=== PATIENT | male | born 1955 | race Caucasian/White ===

== ENCOUNTER 2021-01-05 10:13 | Outpatient (CLI) | payer MEDICARE, SELFPAY ==
[2021-01-05 10:55] LABS: Anion Gap 3 mmol/L (8-16); Blood Urea Nitrogen 14 mg/dL (9-20); Calcium 10.1 mg/dL (8.4-10.2); Carbon Dioxide 34 mmol/L (22-30); Chloride 101 mmol/L (98-107); Estimated Glomerular Filt Rate > 60; Glucose 90 mg/dL (75-110); Potassium 4.4 mmol/L (3.4-5.0); Sodium 138 mmol/L (137-145)
== END 2021-01-05 10:14 | disposition home or self-care (01) ==
LOC: ANHLAB 10:21
PROVIDERS: PCP Family Medicine; Visit Provider Family Medicine
DX: M62.838 Other muscle spasm (principal)
CPT/HCPCS: 36415; 80048

== ENCOUNTER → 2021-01-05 10:42 | Outpatient (CLI) | payer MEDICARE, SELFPAY ==
--- NOTE | ~2021-01-05 | XR_ITS ---
XR thoracic spine 3V 01/05/2021 11:35 Indication: Thoracic spine pain Procedure: 3 views thoracic spine Comparison: No prior studies for comparison. Findings: There is mild levocurvature of the upper thoracic spine. No acute fracture or traumatic mal alignment is identified. There is mild multilevel spondylosis. No paraspinal soft tissue abnormality. Pedicles are intact. There is diffuse idiopathic skeletal hyperostosis (DISH) of the thoracic spine. Impression: 1: No acute abnormality of the thoracic spine. 2: Mild thoracic spondylosis. Reviewed, dictated and finalized at location A. Impression: 1: No acute abnormality of the thoracic spine. 2: Mild thoracic spondylosis.
== END ==
PROVIDERS: PCP Family Medicine; Visit Provider Family Medicine
DX: M47.894 Other spondylosis, thoracic region (principal)
CPT/HCPCS: 72072

== ENCOUNTER 2022-08-16 11:02 | Outpatient (CLI) | payer MEDICARE, SELFPAY ==
--- NOTE | ~2022-08-16 | US_ITS ---
EXAMINATION: US venous doppler [facility] DATE: 08/16/2022 11:40 INDICATION: Left lower limb pain. TECHNIQUE: Grayscale ultrasound images without and with compression and Doppler ultrasound images of the left lower extremity veins were obtained. COMPARISON: None. FINDINGS: The visualized portions of left common femoral vein, profunda (deep) femoral vein, femoral vein, popl iteal vein, peroneal veins, posterior tibial veins, and greater saphenous vein outflow are patent. IMPRESSION: 1. No deep venous thrombosis. Reviewed, dictated and finalized at location A. [employer]
== END 2022-08-16 11:03 | disposition home or self-care (01) ==
PROVIDERS: PCP Family Medicine; Visit Provider Family Medicine
DX: M79.662 Pain in left lower leg (principal)
CPT/HCPCS: 93971

== ENCOUNTER 2022-12-20 07:30 | Outpatient (CLI) | payer MEDICARE, SELFPAY ==
--- NOTE | ~2022-12-20 | XR_ITS ---
EXAMINATION: XR hip RT 2V w AP pelvis INDICATION: Right hip pain TECHNIQUE: AP view of the pelvis and two views of the right hip are obtained. COMPARISON: None available FINDINGS: Bone alignment is normal. There is no fracture. There is mild osteoarthritis of the hips. C hanges of anterior and posterior fusion are noted in the lower lumbar spine. IMPRESSION: 1. Mild osteoarthritis of the hips. Reviewed, dictated and finalized at location B.
== END 2022-12-20 07:31 | disposition home or self-care (01) ==
PROVIDERS: PCP Family Medicine; Visit Provider Family Medicine
DX: M16.0 Bilateral primary osteoarthritis of hip (principal)
CPT/HCPCS: 73502

== ENCOUNTER 2024-12-10 07:29 | Outpatient (CLI) | payer MEDICARE, SELFPAY ==
--- NOTE | ~2024-12-10 | XR_ITS ---
XR hip RT 2V w AP pelvis Ordering provider: Jett Vogt MD History: . M70.61 - Trochanteric bursitis, right hip; chronic pain . Comparison: December 20, 2022 FINDINGS: BONES: No acute fracture or dislocation. HIP JOINT SPACES: Mild to moderate osteoarthritic changes seen bilaterally. SACROILIAC JOINT SPACES/LUMBAR SPINE: The sacroiliac joint spaces shows sacroiliitis. Postoperative c hanges in the lower lumbar area. Mild degenerative changes of the visualized lower lumbar spine. PUBIC SYMPHYSIS: Normal. SOFT TISSUES: Normal. IMPRESSION: No acute osseous abnormality pelvis and right hip. Bilateral hip mild to moderate osteoarthritic martin ges. Reviewed, dictated and finalized at location A. IMPRESSION: No acute osseous abnormality pelvis and right hip. Bilateral hip mild to modera te osteoarthritic changes.
== END 2024-12-10 07:30 | disposition home or self-care (01) ==
LOC: MICIMG 07:30
PROVIDERS: PCP Family Medicine; Visit Provider Orthopaedic Surgery
DX: M70.61 Trochanteric bursitis, right hip (principal)
CPT/HCPCS: 73502

== ENCOUNTER 2025-08-17 08:42 | Outpatient (CLI) | payer MEDICARE, SELFPAY ==
--- OUTSIDE RECORDS SUMMARY | 2010-08-29 18:00 | XMS_ITS | Continuity of Care Document ---
Author Organization [facility] Address [address] [place] [address] Phone Care Team Providers Care Lumber Carrier Name Role Phone Vladislav Zamudio MD Unavailable Unavailable Advance Directives Directive Yes / No Effective Date File Name No Information Encounters Encounter Description Practice Location Reason(s) For Visit Diagnoses Date Provider Providers Copied on Encounter [facility], [address], [place], [place], [address], [place] tel:[phone] [facility] Robb Loomis. [address], [place], [place], [address], [place]. tel:[phone] Family History Family Member Type Diagnosis Age At Onset No Information Payers Payer name Insurance type Covered green party ID Authoriza tion(s) No Information Social History Type Description Quantity Date Captured Comments Sex Male Smoking Status No Information Chief Complaint And Reason For Visit No Information Reason For Referral Reason For Referral No Information History Of Present Illness Encounter Date Complaint History Of Prese nt Illness No Information Functional Status Date Functional Assessmen t No Information Instructions Date Instruction Additional Infor mation No Information Assessments Type Assessment Date No Information Patient Care Teams Name Effective Dates (start - stop) Status Members No Information
--- OUTSIDE RECORDS SUMMARY | 2025-08-04 04:00 | XMS_ITS | Continuity of Care Document ---
Author Organization [employer] [facility] Address [address] [place] [address] Phone Care Team Providers Care Founder And President Name Role Phone Linda Sheridan DMD Unavailable Unavailable Medications Medication Instructions Dosage Effective Dates (start - stop) Status Comments chlorhexidine gluconate 0.12 % mouthwash place 15 milliliter by mucous membrane route 2 times every day in the mouth (after meals), swish in mouth for 30 seconds then spit out 15.00 milliliter - Active amoxicillin 500 mg capsule take 1 capsule by oral route every 8 hours 500 MG - Active acetaminophen 300 mg-codeine 30 mg tablet take 1-2 tablets every 4-6 hours as needed for pain - Active Medrol (Aakash) 4 mg tablets in a dose pack take by oral route as directed per package instructions 0.00 - Active Procedures Procedure Date Office Visit (No Chrg) Office Visit (No Chrg) Removal Of Implant, By Report Guided Tissue Regeneration-Resorbable Ba rrier, Per Site Bone replacement graft Limit Oral Evaluation- problem focused S ep Cone Beam Both Jaws; W/w/o Cranium Sep-0 Limit Oral Evaluation- problem focused J Advance Directives Directive Yes / No Effective Date File Name No Information Encounters Encounter Description Practice Location Reason(s) For Visit Diagnoses Date Provider Providers Copied on Encounter [facility] , [address], [place], [place], [address], tel:[phone] [facility] Encounter for dental exam and cleaning w abnormal findings 5 Arvin Mckeon. [address], [place], [place], [address]. tel:[phone] [facility] , [address], [place], [place], [address], [place] tel:[phone] [facility] Encounter for dental exam and cleaning w abnormal findings 5 Arvin Mckeon. [address], [place], [place], [address]. tel:[phone] Referring Provider: Linda Sheridan, [address], [place], [address] . tel:[phone] [facility] , [address], [place], [place], [address], [place] tel:[phone] [facility] [place]-osseo[place] gration biological failure of dental implantOth disrd of gingiva and edentulous alveolar ridgePartial loss of teeth due to oth cause, unspecified class 5 Mika Rocha. [address], [place], [place], [address]. tel:[phone] [facility] , [address], [place], [place], [address], [place] tel:[phone] [facility] Encounter for dental exam and cleaning w abnormal findings 5 Mika Rocha. [address], [place], [place], [address]. tel:[phone] [facility] , [address], [place], [place], [address], [place] tel:[phone] [facility] Encounter for dental exam and cleaning w abnormal findings 5 Debbie Titus. [address], [place], [place], [address]. tel:[phone] Referring Provider: Linda Sheridan, [address], [place], [address] . tel:[phone] [facility] , [address], [place], [place], [address], [place] tel:[phone] Care Guidelines 1-190 1 No Information Family History Family Member Type Diagnosis Age At Onset No Information Payers Payer name Insurance type Covered constitution party ID Alban chauhan(s) Khari [facility] COMMERCIAL CI [id number] Social History Type Description Quantity Date Captured [...]
--- NOTE | ~2025-08-17 | US_ITS ---
EXAMINATION: US aorta [facility] scrn, 08/17/2025 9:25 WET END SUPERVISOR HISTORY: Z87.891 - Personal history of nicotine dependence Comparison: None Technique: Grimm-scale and color Doppler images were obtained. Findings: Large amount of bowel gas obscures evaluation There is no aneurysm identified of the visualized aorta, the visualized proximal iliac arteries are unremarkable. IMPRESSION: No aneurysm identified Reviewed, dictated and finalized at location P. END SUPERVISOR IMPRESSION: No aneurysm identified
--- OUTSIDE RECORDS SUMMARY | 2025-08-17 09:11 | XMS_ITS | Patient Health Record ---
Author Organization [facility] , Address [address] [facility] [address] [place] [address] Care Team Providers Care Seed Service Advisor Name Role Phone Wilbert Huynh Primary Care Provider Bibi e Victoriano Vallecillo Unavailable [phone] REASON FOR REFERRAL No Information MEDICATIONS Medication SIG (Take, Route, Frequency, Duration) Notes Start Date End Date Status Lipitor Not-Taking Metoprolol Succinate Active Omeprazole Not-Takin g Indomethacin ER 75 MG 1 capsule with valente d Orally Once a day for 30 day(s) 10/18/2017 Not-Javon ing Acyclovir Active PLAN OF TREATMENT No Information Insurance Providers Payer Name Payer Address Payer Phone Subscriber Number Group Number Insured Name Patient Relationship to Insured Coverage Start Date Coverage End Date [employer] [address] [place] [address] [id number] Simon Marks Self - patient is the insured MEDICATIONS ADMINISTERED Medication Instructions Date of Administration Dosage Notes Celestone 1mg-[id number] 02/24/2020 1 cm3 MEDICAL (GENERAL) HISTORY Medical History History ICD Code Cancer Hypertension Sleep apnea Surgical History Surgery Date(Month/Year) Spine fusion 2007 MCL repair 2016
--- OUTSIDE RECORDS SUMMARY | 2025-08-17 09:11 | XMS_ITS | Clinical Summary ---
Author Organization [facility] HealthCare Care Team Providers Care Manager Of Compliance Name Role Phone Jacques Meraz MD Primary Care Provider Allergies No known active allergies Medications cholecalciferol (VITAMIN D-3) 1,000 unit Active metoprolol (LOPRESSOR) 50 mg tablet Take 1 tablet (50 mg total) by mouth 2 (two) times a day 180 tablet 3 9 Active TRIAMTERENE-HYDR OCHLOROTHIAZIDE 37.5-25 mg per capsule Take 1 capsule by mouth daily 3 9 Active omeprazole OTC (PriLOSEC OTC) 20 mg EC tablet OMEPRAZOLE 20 MG ORAL TABLET DELAYED RELEASE 3 Active Nystop powderIndication s:Intertrigo apply powder to groin area every day as needed 60 g 2 2 Active valACYclovir (VALTREX) 1 gram tablet Take 1,000 mg by mouth daily 2 Active atorvastatin (LIPITOR) 10 mg tablet Take 10 mg by mouth daily 2 Active omeprazole (PriLOSEC) 20 mg capsule Take by mouth daily 2 Active apixaban (ELIQUIS) 5 mg tabletIndication s:Atrial fibrillation, unspecified type (HCC) Take 1 tablet (5 mg total) by mouth 2 (two) times a day 62 tablet 2 Active Active Problems Problem Noted Date Diagnosed Date S/P ablation of atrial fibrillation 12/18/2021 Anticoagulation management encounter 12/18/2021 Assessment & Plan (02/16/2022 9:17 AM CDT): The patient has a KFW9JM3-ODCi score of 2 (annualized risk of stroke 2.2%). I have therefore recommended continued anticoagulation for thromboprophylaxis. Assessment & Plan (12/18/2021 11:57 AM CDT): The patient has a OQP3HW2-XOQd score of 1 (annualized risk of stroke 1.2%). I have recommended continued anticoagulation in anticipation of christian of sinus rhythm. The patient will follow-up with me in 1-2 months for an office visit and twelve- lead ECG. Lopez angioma 01/15/2018 Dermatofibroma 01/15/2018 Intertrigo 01/15/2018 Essential hypertension 10/19/2017 Assessment & Plan (11/17/2021 3:30 PM REGISTRATION SCHEDULING SPECIALIST): Blood pressure is normal today. If it becomes low with metoprolol 50 mg b.i.d., triamterene hydrochlorothiazide may need to be decreased or eliminated. Assessment & Plan (10/19/2017 10:39 AM REGISTRATION SCHEDULING SPECIALIST): Blood pressure is adequately controlled on current regimen. No change was made. Weight loss would benefit his blood pressure Morbid obesity 10/19/2017 Assessment & Plan (10/19/2017 10:40 AM REGISTRATION SCHEDULING SPECIALIST): Obesity is contributing to his hypertension and he would likely require less medication with weight loss. I think he is a safe candidate for bariatric surgery. He is medically clear and stable for surgery. 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 He underwent cardioversion 2 months ago, but his atrial arrhythmia has recurred. We discussed options for management, and the patient would like to undergo repeat ablation. We discussed the rationale for atrial fibrillation ablation, including the steps involved in ablation. I detailed the risks of the procedure, including vascular injury/hematoma, myocardial injury/perforation, stroke, myocardial infarction, pulmonary vein stenosis, thermal esophageal injury, phrenic nerve injury, and . I estimated a 70% chance of freedom from long-term atrial arrhythmia. Because of the patient's persistent atrial fibrillation, I recommended that they undergo transesophageal echocardiography (to exclude the presence of left atrial thrombus) immediately prior to EP study and ablation. My office will make the appropriate arrangements. Assessment & Plan (12/18/2021 11:56 AM CDT): Persistent atrial fibrillation, symptomatic. He is over 7 years post catheter ablation. I recommended repeat cardioversion. Risks and benefits were explained. If he experiences recurrence of atrial arrhythmia post cardioversion, catheter ablation can be considered. Assessment & Plan (11/17/2021 3:29 PM REGISTRATION SCHEDULING SPECIALIST): Recurrent atrial fibrillation of unknown chronicity nine years following ablation. He now has a chads Vasc score of two for which he should be systemically anticoagulated. We discussed NOAC therapy but I did not prescribe anything pending review labs which he had drawn today at to make sure that he is not anemic and that he has normal renal function. Recommended increasing metoprolol back to his prescribed dosage of 50 mg b.i.d.. Will obtain echo Doppler. Will refer back to Dr. López. Assessment & Plan (10/19/2017 10:39 AM REGISTRATION SCHEDULING SPECIALIST): No documented recurrence since his ablation. He is no longer on anticoagulation, and does not require it. Shortness of breath 09/05/2013 Hypercholesterolemia 09/05/2013 Thoracic and lumbosacral neuritis 12/18/2008 Encounters Date Type Department Care Team Description 05/22/2025 Orders Only [facility] Medicine Pathology Outreach [address] [place] [address] Erin Camargo MD from Last 3 Months Surgical History Surgery Date Site/Laterality Comments BACK SURGERY Back Surgery HIATAL HERNIA REPAIR Hiatal Hernia Repair SPINAL FUSION 09/17/2010 - 09/16/2011 Spinal Fusion ABLATION Ablation ARTHROSCOPIC REPAIR ACL Medical History Medical History Date Comments Hx Other Medical Sleep Apnea, CP AP Hx Other Medical 1998 Hiatal Hernia Family History Medical History Relation Name Comments Heart attack Brother 2 Myocardial Infa rction; Relation Name Status Comments Brother 1 Alive Brother 2 Social History Tobacco Use Types Packs/Day Years Used Date Smoking Tobacco: Former Smokeless Tobacco: Former Tobacco Cessation:Counseling Given: Not Answered Alcohol Use Standard Drinks/Week Comments Yes 0 (1 standard drink = 0.6 oz pur e alcohol) Sex and Gender Information Value Date Recorded Sex Assigned at Not on file Legal Sex Male 7:20 PM REGISTRATION SCHEDULING SPECIALIST Gender Identity Male 11/17/2021 6:49 AM REGISTRATION SCHEDULING SPECIALIST Sexual Orientation Not on file Last Filed Vital Signs Vital Sign Reading Time Taken Comments Blood Pressure 126/81 07/10/2022 9:33 AM CDT Pulse 55 07/10/2022 9:33 AM CDT Temperature 36.8 C (98.2 F) 02/27/2022 3:20 PM CDT Respiratory Rate 16 07/10/2022 9:33 AM CDT Oxygen Saturation 97% 04/10/2022 9:51 AM CDT Inhaled Oxygen Concentration - - Weight 126.7 kg (279 lb 6.4 oz) 022 9:33 AM CDT Height 185.4 cm (6' 1) 07/10/2022 9:33 AM CDT Body Mass Index 36.86 07/10/2022 9:33 AM CDT Plan of Treatment Health Maintenance Due Date Last Done Comments Colon Cancer Screening-Colonoscopy 1955 Depression Screening 1955 Hepatitis C Screening 1955 Prostate Cancer Screening-PSA 1955 DTaP/Tdap/Td Vaccine (1 - Tdap) 1966 Hepatitis B Screening 1973 Abdominal Aortic Aneurysm (AAA) Screen 2020 Well Visit 65+ 2020 Pneumococcal vaccine 65+ (2 of 2 - PCV) 06/15/2022 0 06/15/2021 Fall Risk Assessment 02/27/2023 02/27/2022 Influenza Vaccine (#1) 2025 Zoster Vaccine Completed 05/28/2019, 01/30/2019 Medical Devices Implanted Type Area Clinical Dietitian Device Identifier Shelf Expiration Date Model / Serial / Lot [employer] Vascade 6/7fr Bioabsorbable Vascular System Compression Collagen [id number] - [id number] - [id number] Implanted:Qty: 1 on 02/27/2022 by Dino López MD at [facility] Collagen [employer] 11/17/2023 [id number] [id number] / [id number] / [id number] Vascade Mvp 6-12fr Venous Closure [id number] - [id number] - [id number] Implanted:Qty: 1 on 02/27/2022 by Dino López MD at [facility] Collagen [employer] 12/21/2023 [id number]-[id number] 0U / [id number] / [id number] Vascade Mvp 6-12fr Venous Closure [id number] - [id number] - [id number] Implanted:Qty: 1 on 02/27/2022 by Dino López MD at [facility] Collagen [employer] 12/21/2023 800-612C-1 0U / [id number] / [id number] Vascade Mvp 6-12fr Venous Closure [id number] - [id number] - [id number] Implanted:Qty: 1 on 02/27/2022 by Dino López MD at [facility] [employer] 12/21/2023 800-612C-1 0U / [id number] / [id number] Procedures Procedure Name Priority Date/Time Associated Diagnosis Comments SURGICAL PATHOLOGY Routine 05/22/2025 10 :20 AM CDT from Last 3 Months Results * Surgical pathology (05/22/2025 10:20 AM CDT) Skin, shave biopsy 05/22/2025 10:20 AM CDT 05/25/2025 6:34 AM CDT Narrative 05/26/2025 12:57 PM CDT EPIC results best viewed via link to PDF [facility] [facility], [address], [place] [address] [email or web address] Note to Patients: This report may contain a detailed description of human tissue sent by a health care provider to the laboratory for pathologic evaluation. The content of this report is essential for diagnosis and may provide important critical findings. This information may be unfamiliar to patients to review without a medical professional present. It is advised that the patient review this report in the presence of a health care provider who can answer questions and explain the details. FINAL REPORT Patient Information: PATIENT NAME: SIMON ROBERSON SEX: M : 1955 (Age: 69) Specimen Information: COLLECTED: 05/22/2025 RECEIVED: 05/25/2025 REPORTED: 05/26/2025 Submitting Physician Information: Erin Camargo MD [facility] [place], [facility] [place] [address], DERMATOPATHOLOGY REPORT RESULTS DIAGNOSIS: SKIN, LEFT DORSAL HAND, SHAVE BIOPSY: SQUAMOUS CELL CARCINOMA IN SITU Note: The lesion does not extend to the margins of the sections examined. ag/lac By this signature, I attest that the above diagnosis is based upon my personal examination of the slides(and/or other material indicated in the diagnosis). Yumi Gonzalez M.D. Report Electronically Reviewed and Signed Out By Yumi Gonzalez M.D. 05/26/2025 12:57:08 CLINICAL INFORMATION ERYTHEMATOUS PATCH WITH HYPERKERATOTIC SCALE: ACTINIC KERATOSIS VS BASAL CELL CARCINOMA SPECIMEN DATA MICROSCOPIC DESCRIPTION: Atypical keratinocytes are present throughout the entire thickness of the epidermis. (D04.9) GROSS DESCRIPTION: Received in a formalin-containing bottle is a superficial fragment of pale freire, dome-shaped, and hair-bearing skin measuring 0.8 by 0.6 by 0.1 cm. The surgical margin is inked blue. The specimen is sectioned into 3 pieces and submitted entirely in a single cassette. Due to shrinkage, measurements may be different than those at time of procedure. catherine/anc ICD-9 A; ZSD.1474 Clerical Data A; 98782 The characteristics of special, immunohistochemical, and immunofluorescence stains and in-situ hybridization tests performed by the [facility] were deemed acceptable in ongoing quality management coordinator measures and in compliance with regulations drawn from the Clinical Laboratory Improvement Act yr1583 (CLIA '88). Control reactions for all stains performed were deemed adequate and appropriate by a pathologist prior to evaluation of patient tissue. Some diagnoses were rendered with the assistance of laboratory-developed tests utilizing analyte-specific reagents; the performance characteristic of these tests were determined by [facility] and are not cleared or approved by the [place] Food an Drug administration. Laboratory developed test may only be performed in a facility that is certified by the [facility] as a high-complexity laboratory under CLIA '88. These tests are used for clinical purposes and are not investigational. Erin Camargo MD LAB PATHOLOGY ORDERABLES F inal Result from Last 3 Months Insurance [facility] Address: [facility] [address] [place] [address] [facility] ADVANTAGE [facility] Address: [address] [address] [place] [address] [facility] MDCR HMO REF [facility] Address: [address] [address] [place] [address] Care Teams Manager Of Compliance Relationship Specialty Start Date End Date Jacques Meraz MD [address] [place] [address] PCP - General Family Medicine 02/24/20
== END 2025-08-17 08:43 | disposition home or self-care (01) ==
PROVIDERS: PCP Family Medicine; Visit Provider Student in an Organized Health Care Education/Training Program
DX: Z13.6 Encounter for screening for cardiovascular disorders (principal); Z87.891 Personal history of nicotine dependence
CPT/HCPCS: 76706